=== PATIENT | male | born 1980 | race Caucasian/White ===

== ENCOUNTER 2020-11-02 11:20 | Emergency (ER) | payer OTHER ==
[~2020-11-02] VITALS: Ht 172.7 cm; Wt 75.9 kg
[2020-11-02 14:24] VITALS: BP 129/77
== END 2020-11-02 14:48 | disposition home or self-care (01) ==
LOC: EMS 11:23
DX: S06.0X9A Concussion with loss of consciousness of unspecified duration, initial encounter (principal); Y08.89XA Assault by other specified means, initial encounter; Y93.89 Activity, other specified; Y92.89 Other specified places as the place of occurrence of the external cause; Y99.0 Civilian activity done for income or pay
CPT/HCPCS: 70450; 99284; 99285

== ENCOUNTER 2023-06-10 08:19 | Emergency (ER) | payer OTHER ==
[~2023-06-10] VITALS: Ht 172.7 cm; Wt 86.4 kg
[2023-06-10 08:29] VITALS: TEMP 98.8
[2023-06-10 09:14] VITALS: BP 150/90; PULSE 78; RESP 18
== END 2023-06-10 11:06 | disposition home or self-care (01) ==
LOC: EMS 08:24
DX: S00.93XA Contusion of unspecified part of head, initial encounter (principal); S10.93XA Contusion of unspecified part of neck, initial encounter; Y08.89XA Assault by other specified means, initial encounter; Y93.89 Activity, other specified; Y92.89 Other specified places as the place of occurrence of the external cause; Y99.8 Other external cause status
CPT/HCPCS: 99282; Z7502

== ENCOUNTER 2024-01-01 07:56 | Day surgery (SDC) | payer OTHER ==
[~2024-01-01] VITALS: Ht 172.7 cm; Wt 75.0 kg
[~2024-01-01 07:56] MED LIST: ASPI-1444 PO; CHOL400T56 PO; FLUT16SP NASAL; OMEP40CA21 PO; ROSU20TA73 PO; SODIUM CHLORIDE 0.9% 1,000 ML ONE; VITA-328 PO; ZINC50CA3 PO
[2024-01-01] MEDS: SODIUM CHLORIDE 0.9% 1,000 ML IV ONE (08:45)
[2024-01-01] MEDS ORDERED: PROPOFOL 1% 20 ML VIAL IVP ONE (12:00)
[2024-01-01] MEDS ORDERED: LIDOCAINE/PF 2% 5 ML VIAL IM ONE (12:00)
== END 2024-01-01 12:10 | disposition home or self-care (01) ==
LOC: SURGERY 07:56
PROVIDERS: ATTEND Internal Medicine Gastroenterology
DX: K21.9 Gastro-esophageal reflux disease without esophagitis (principal); K31.89 Other diseases of stomach and duodenum; K44.9 Diaphragmatic hernia without obstruction or gangrene; K29.50 Unspecified chronic gastritis without bleeding; I10 Essential (primary) hypertension; R07.89 Other chest pain; E78.00 Pure hypercholesterolemia, unspecified; Z86.16 Personal history of COVID-19; Z79.899 Other long term (current) drug therapy; Z82.49 Family history of ischemic heart disease and other diseases of the circulatory system
CPT/HCPCS: 88305; 88312; 88313; J2704; J3490; J7030

== ENCOUNTER → 2024-01-12 | Outpatient (CLI) | payer OTHER ==
[~2024-01-12] MED LIST changes: +REGADENOSON 0.4 MG/5 ML PF SYRINGE IVP ONE; +SESTAMIBI TC99M/UD ISOTOPE 1 EA INJ ONE; -SODIUM CHLORIDE 0.9% 1,000 ML ONE
[2024-01-12] MEDS: REGADENOSON 0.4 MG/5 ML PF SYRINGE IVP ONE (10:14)
== END | disposition home or self-care (01) ==
LOC: CARDMN 08:18
PROVIDERS: ATTEND Internal Medicine Cardiovascular Disease
DX: R07.9 Chest pain, unspecified (principal)
CPT/HCPCS: 78452; A9500; J2785

== ENCOUNTER 2024-09-08 08:55 | Emergency (ER) | payer OTHER ==
[~2024-09-08] VITALS: Ht 170.2 cm; Wt 79.5 kg
[~2024-09-08 08:55] MED LIST changes: -REGADENOSON 0.4 MG/5 ML PF SYRINGE IVP ONE; -ROSU20TA73 PO; +ROSU20TA98 PO; -SESTAMIBI TC99M/UD ISOTOPE 1 EA INJ ONE
[2024-09-08 09:01] VITALS: BP 141/93; PULSE 90; RESP 18; TEMP 98.2; O2SAT 99
[2024-09-08] MEDS: ACETAMINOPHEN 500 MG TABLET PO ONE (09:53)
[2024-09-08] MEDS: GuaiFENesin/D-METHORPHAN [SUGAR-FREE] 200-20MG/10 ML SYRUP UDCUP PO ONE (09:53)
[2024-09-08] MEDS: IBUPROFEN 600 MG TABLET PO ONE (09:54)
[2024-09-08 10:08] LABS: COVID AG,FIA SOURCE NASAL SWAB
[2024-09-08 10:25] LABS: SARS-COV2 (COVID) ANTIGEN,FIA Negative (Negative)
[2024-09-08 10:26] LABS: INFLUENZA TYPE A NEGATIVE FOR TYPE A (NEGATIVE); INFLUENZA TYPE B NEGATIVE FOR TYPE B (NEGATIVE)
[2024-09-08] MEDS ORDERED: IBUP-1554 PO (10:53)
[2024-09-08] MEDS ORDERED: HYDR-4062 PO (10:53)
[2024-09-08] MEDS ORDERED: BENZ-227 PO (10:53)
[2024-09-08] MEDS ORDERED: AZIT250T9 PO (11:05)
== END 2024-09-08 11:06 | disposition home or self-care (01) ==
LOC: EMS 08:58
DX: J20.9 Acute bronchitis, unspecified (principal); Z79.82 Long term (current) use of aspirin; Z79.899 Other long term (current) drug therapy; Z20.822 Contact with and (suspected) exposure to COVID-19
CPT/HCPCS: 87804; 99284; Z7502; Z7610

== ENCOUNTER 2024-10-30 11:37 | Emergency (ER) | payer OTHER ==
[~2024-10-30] VITALS: Ht 172.7 cm; Wt 86.4 kg
[~2024-10-30 11:37] MED LIST changes: +BENZ-227 PO; +HYDR-4062 PO; +IBUP-1554 PO
[2024-10-30 11:48] VITALS: TEMP 97.9
[2024-10-30 12:20] LABS: BASOPHILS % (AUTO) 0.1 % (0.0-2.0); EOSINOPHILS % (AUTO) 0.4 % (1.0-6.0); HEMOGLOBIN 16.1 g/dL (13.5-17.5); LYMPHOCYTES # (AUTO) 0.5 K/uL (1.0-4.8); LYMPHOCYTES % (AUTO) 4.3 % (22.0-44.0); MEAN CORPUSCULAR HEMOGLOBIN 25.6 pg (26.0-34.0); MEAN CORPUSCULAR HGB CONC 32.9 G/dL (31.0-37.0); MEAN CORPUSCULAR VOLUME 78 fL (80-100); MONOCYTES # (AUTO) 0.4 K/uL (0.1-1.0); MONOCYTES % (AUTO) 3.8 % (2.0-9.0); NEUTROPHILS # (AUTO) 10.4 K/uL (1.8-7.7); PLATELET COUNT (AUTO) 276 K/uL (150-450); RED CELL DISTRIBUTION WIDTH 14.1 % (11.5-14.5); WHITE BLOOD COUNT (AUTO) 11.4 K/uL (4.5-11.0)
[2024-10-30] MEDS: ONDANSETRON HCL 4 MG/2 ML VIAL IVP ONE (12:26)
[2024-10-30] MEDS: SODIUM CHLORIDE 0.9% 2,000 ML IV ONE (12:26)
[2024-10-30] MEDS: DIPHENOXYLATE/ATROP 2.5-0.025 MG TABLET PO ONE (12:27)
[2024-10-30] MEDS: ACETAMINOPHEN 500 MG TABLET PO ONE (12:27)
[2024-10-30 12:28] LABS: NEUTROPHILS % (AUTO) 91.4 % (40.0-70.0)
[2024-10-30 12:30] LABS: ANION GAP 10 mmol/L (8-16); CALCIUM, TOTAL 8.7 mg/dL (8.8-10.5); CARBON DIOXIDE 25 mmol/L (22-29); CHLORIDE 102 mmol/L (98-107); CREATININE 0.72 mg/dL (0.60-1.30); GLOMERULAR FILTR. RATE CALC > 60 mL/min (>60); GLUCOSE,RANDOM 133 mg/dL (70-110); LIPASE 54 U/L (16-77); POTASSIUM 4.4 mmol/L (3.5-5.1); SODIUM SERUM 137 mmol/L (136-145); UREA NITROGEN, BLOOD 18 mg/dL (7-18)
[2024-10-30 12:34] LABS: ALBUMIN 4.2 g/dL (3.4-5.0); BILIRUBIN,DIRECT 0.2 mg/dL (0.00-0.20); BILIRUBIN,TOTAL 0.8 mg/dL (0.1-1.0); TOTAL PROTEIN, SERUM 8.1 g/dL (6.4-8.2)
[2024-10-30] MEDS ORDERED: DIPH-1130 PO (12:58)
[2024-10-30] MEDS ORDERED: ONDA-104 PO (12:58)
[2024-10-30] MEDS ORDERED: ACET-66 PO (12:58)
[2024-10-30 13:13] LABS: RBC MORPHOLOGY COMMENT ABNORMAL RBC MORPH
[2024-10-30 13:40] VITALS: BP 120/77; PULSE 98; RESP 16; O2SAT 100
[2024-10-31] MEDS ORDERED: FAMO40TA7 PO (16:45)
== END 2024-10-30 13:41 | disposition home or self-care (01) ==
LOC: EMS 11:41
DX: K52.9 Noninfective gastroenteritis and colitis, unspecified (principal); R42 Dizziness and giddiness; R53.1 Weakness; Z79.82 Long term (current) use of aspirin; Z79.899 Other long term (current) drug therapy
CPT/HCPCS: 99283; 96374; 96361; 80048; 80076; 83690; 85025; 36415; J2405; J7030

== ENCOUNTER 2024-10-31 16:38 | Inpatient (IN) | payer OTHER ==
[~2024-10-31] VITALS: Ht 172.7 cm; Wt 86.5 kg
[~2024-10-31 16:38] MED LIST changes: +ACET-66 PO; +DIPH-1130 PO; +ONDA-104 PO
[2024-10-31] MEDS ORDERED: FAMO40TA7 PO (16:45)
[2024-10-31 17:31] LABS: COVID AG,FIA SOURCE NASAL SWAB
[2024-10-31 17:52] LABS: INFLUENZA TYPE A NEGATIVE FOR TYPE A (NEGATIVE); INFLUENZA TYPE B NEGATIVE FOR TYPE B (NEGATIVE); SARS-COV2 (COVID) ANTIGEN,FIA Negative (Negative)
[2024-10-31] MEDS: ONDANSETRON HCL 4 MG/2 ML VIAL IVP ONE (18:29)
[2024-10-31] MEDS: SODIUM CHLORIDE 0.9% 2,000 ML IV ONE (18:29)
[2024-10-31 18:39] LABS: ANION GAP 7 mmol/L (8-16); CALCIUM, TOTAL 7.7 mg/dL (8.8-10.5); CARBON DIOXIDE 26 mmol/L (22-29); CHLORIDE 102 mmol/L (98-107); CREATININE 0.81 mg/dL (0.60-1.30); GLOMERULAR FILTR. RATE CALC > 60 mL/min (>60); GLUCOSE,RANDOM 106 mg/dL (70-110); POTASSIUM 3.9 mmol/L (3.5-5.1); SODIUM SERUM 135 mmol/L (136-145); UREA NITROGEN, BLOOD 18 mg/dL (7-18)
[2024-10-31 18:40] LABS: BASOPHILS % (AUTO) 0.1 % (0.0-2.0); EOSINOPHILS % (AUTO) 0.3 % (1.0-6.0); HEMATOCRIT 46.6 % (41-53); HEMOGLOBIN 15.3 g/dL (13.5-17.5); LYMPHOCYTES # (AUTO) 0.5 K/uL (1.0-4.8); MEAN CORPUSCULAR HEMOGLOBIN 25.6 pg (26.0-34.0); MEAN CORPUSCULAR HGB CONC 32.8 G/dL (31.0-37.0); MEAN CORPUSCULAR VOLUME 78 fL (80-100); MONOCYTES # (AUTO) 0.2 K/uL (0.1-1.0); MONOCYTES % (AUTO) 3.5 % (2.0-9.0); NEUTROPHILS # (AUTO) 6.2 K/uL (1.8-7.7); PLATELET COUNT (AUTO) 218 K/uL (150-450); RED BLOOD CELL COUNT(AUTO) 5.97 MIL/uL (4.50-5.90); RED CELL DISTRIBUTION WIDTH 14.3 % (11.5-14.5)
[2024-10-31 18:43] LABS: NEUTROPHILS % (AUTO) 89.1 % (40.0-70.0)
[2024-10-31 18:48] LABS: LACTIC ACID 1.1 mmol/L (0.4-2.0)
[2024-10-31] MEDS: DEXTROSE 5%-LACTATED RINGERS 1,000 ML IV SCH (19:54)
[2024-10-31 21:34] VITALS: BP 125/78; PULSE 112; RESP 18; TEMP 99.2; O2SAT 98
[2024-10-31] MEDS: ACETAMINOPHEN 325 MG TABLET PO PRN (21:50)
[2024-10-31 23:14] LABS: OCCULT BLOOD STOOL SINGLE ONLY POSITIVE (NEGATIVE)
[2024-10-31 23:37] LABS: C.DIFF GDH ANTIGEN, Stool Negative (Negative); C.DIFF TOXINS A&B, Stool Negative (Negative)
[2024-11-01] MEDS: HEPARIN SODIUM,PORCINE 5,000 UNITS/ML VIAL SQ SCH
[2024-11-01] MEDS: *CLINICAL-LEVOFLOXACIN ORAL DOSING CLINICAL ONE (01:42)
[2024-11-01] MEDS: MetroNIDAZOLE 500 MG TABLET PO SCH (02:25)
[2024-11-01] MEDS: RINGERS SOLUTION,LACTATED 500 ML IV ONE (02:25)
[2024-11-01] MEDS: AZITHROMYCIN 500 MG/NS 250 ML IV ONE (02:26)
[2024-11-01] MEDS ORDERED: LEVOFLOXACIN 500 MG/D5% WATER 100 ML IV SCH (04:00)
[2024-11-01 08:12] LABS: BASOPHILS % (AUTO) 0.2 % (0.0-2.0); EOSINOPHILS % (AUTO) 0.6 % (1.0-6.0); HEMATOCRIT 38.7 % (41-53); HEMOGLOBIN 12.9 g/dL (13.5-17.5); LYMPHOCYTES # (AUTO) 0.8 K/uL (1.0-4.8); LYMPHOCYTES % (AUTO) 13.2 % (22.0-44.0); MEAN CORPUSCULAR HEMOGLOBIN 25.8 pg (26.0-34.0); MEAN CORPUSCULAR HGB CONC 33.3 G/dL (31.0-37.0); MEAN CORPUSCULAR VOLUME 77 fL (80-100); MONOCYTES # (AUTO) 0.4 K/uL (0.1-1.0); MONOCYTES % (AUTO) 6.1 % (2.0-9.0); NEUTROPHILS # (AUTO) 5.1 K/uL (1.8-7.7); NEUTROPHILS % (AUTO) 79.9 % (40.0-70.0); PLATELET COUNT (AUTO) 193 K/uL (150-450); RED CELL DISTRIBUTION WIDTH 13.9 % (11.5-14.5); WHITE BLOOD COUNT (AUTO) 6.4 K/uL (4.5-11.0)
[2024-11-01] MEDS: LEVOFLOXACIN 500 MG TABLET PO SCH (08:13)
[2024-11-01] MEDS: ONDANSETRON HCL 4 MG/2 ML VIAL IVP PRN (08:18)
[2024-11-01 08:33] LABS: ANION GAP 8 mmol/L (8-16); CALCIUM, TOTAL 7.5 mg/dL (8.8-10.5); CARBON DIOXIDE 24 mmol/L (22-29); CHLORIDE 106 mmol/L (98-107); CREATININE 0.61 mg/dL (0.60-1.30); GLOMERULAR FILTR. RATE CALC > 60 mL/min (>60); GLUCOSE,RANDOM 114 mg/dL (70-110); POTASSIUM 3.2 mmol/L (3.5-5.1); SODIUM SERUM 138 mmol/L (136-145); UREA NITROGEN, BLOOD 10 mg/dL (7-18)
[2024-11-01 08:52] VITALS: BP 111/71; PULSE 89; RESP 18; TEMP 98.2; O2SAT 99
[2024-11-01 09:01] LABS: RBC MORPHOLOGY COMMENT ABNORMAL RBC MORPH
[2024-11-01] MEDS ORDERED: POTASSIUM CHL 10 MEQ/WATER 50 ML IV PRN (11:15)
[2024-11-01] MEDS: FAMOTIDINE 20 MG TABLET PO SCH (14:24)
[2024-11-01] MEDS: POTASSIUM CHLORIDE 20 MEQ ER TABLET PO PRN (14:25)
[2024-11-01 15:59] VITALS: BP 114/83; PULSE 82; RESP 18; TEMP 100; O2SAT 96
[2024-11-01 19:20] VITALS: BP 118/80; PULSE 83; RESP 20; TEMP 98.6; O2SAT 100
[2024-11-01] MEDS: LACTOBAC ACID/BULG/BIFID/THERM TABLET PO SCH (20:36)
[2024-11-02 03:55] VITALS: BP 122/77; PULSE 77; RESP 18; TEMP 98.2; O2SAT 97
[2024-11-02 06:08] LABS: BASOPHILS % (AUTO) 0.3 % (0.0-2.0); EOSINOPHILS % (AUTO) 1.3 % (1.0-6.0); HEMATOCRIT 41.4 % (41-53); HEMOGLOBIN 13.6 g/dL (13.5-17.5); LYMPHOCYTES # (AUTO) 1.2 K/uL (1.0-4.8); LYMPHOCYTES % (AUTO) 32.4 % (22.0-44.0); MEAN CORPUSCULAR HEMOGLOBIN 25.5 pg (26.0-34.0); MEAN CORPUSCULAR HGB CONC 32.8 G/dL (31.0-37.0); MEAN CORPUSCULAR VOLUME 78 fL (80-100); MONOCYTES # (AUTO) 0.5 K/uL (0.1-1.0); MONOCYTES % (AUTO) 13.9 % (2.0-9.0); NEUTROPHILS # (AUTO) 1.9 K/uL (1.8-7.7); NEUTROPHILS % (AUTO) 52.1 % (40.0-70.0); PLATELET COUNT (AUTO) 226 K/uL (150-450); RED BLOOD CELL COUNT(AUTO) 5.34 MIL/uL (4.50-5.90); RED CELL DISTRIBUTION WIDTH 13.9 % (11.5-14.5); WHITE BLOOD COUNT (AUTO) 3.7 K/uL (4.5-11.0)
[2024-11-02 07:53] VITALS: BP 114/74; PULSE 74; RESP 18; TEMP 98.8; O2SAT 95
[2024-11-02] MEDS ORDERED: LEVO-72 PO (10:11)
[2024-11-02] MEDS ORDERED: METR500 PO (10:11)
== END 2024-11-02 15:05 | disposition home or self-care (01) | DRG 392 ==
LOC: EMS 16:38 → EDH 18:59 → 6N 20:50 → 4E 11-01 13:39
PROVIDERS: ADMIT Internal Medicine; ATTEND Internal Medicine
DX: A09 Infectious gastroenteritis and colitis, unspecified (principal); E86.0 Dehydration; E78.5 Hyperlipidemia, unspecified; J30.9 Allergic rhinitis, unspecified; Z20.822 Contact with and (suspected) exposure to COVID-19; E87.6 Hypokalemia; D64.9 Anemia, unspecified; K21.9 Gastro-esophageal reflux disease without esophagitis; Z79.899 Other long term (current) drug therapy
CPT/HCPCS: 80048; 82271; 83605; 83735; 84132; 85025; 87324; 87449; 87804; 89055; 96361; 96374; 99285; G0378; J0456; J1644; J1956; J2405; J7120; 36415-L1; 36415-TC

== ENCOUNTER 2025-01-28 06:06 | Day surgery (SDC) | payer OTHER ==
[~2025-01-28] VITALS: Ht 172.7 cm; Wt 85.9 kg
[~2025-01-28 06:06] MED LIST changes: -ACET-66 PO; -ASPI-1444 PO; +ASPI-1450 PO; -BENZ-227 PO; -CHOL400T56 PO; -DIPH-1130 PO; +FAMO40TA7 PO; -FLUT16SP NASAL; -HYDR-4062 PO; -IBUP-1554 PO; -OMEP40CA21 PO; -ONDA-104 PO; +ROSU10TA72 PO; -ROSU20TA98 PO; +SODIUM CHLORIDE 0.9% 1,000 ML ONE; -VITA-328 PO; -ZINC50CA3 PO
[2025-01-28] MEDS: SODIUM CHLORIDE 0.9% 1,000 ML IV ONE (06:58)
[2025-01-28] MEDS ORDERED: PROPOFOL 1% 20 ML VIAL IVP ONE (12:00)
[2025-01-28] MEDS ORDERED: LIDOCAINE/PF 2% 5 ML VIAL ONE (12:00)
== END 2025-01-28 10:05 | disposition home or self-care (01) ==
LOC: SURGERY 06:06
PROVIDERS: ATTEND Internal Medicine
DX: K92.1 Melena (principal); K63.5 Polyp of colon; K64.8 Other hemorrhoids; E78.00 Pure hypercholesterolemia, unspecified; K21.9 Gastro-esophageal reflux disease without esophagitis; Z72.89 Other problems related to lifestyle; Z20.822 Contact with and (suspected) exposure to COVID-19
CPT/HCPCS: 45380; 88305; C1769; J2704; J3490; J7030

== ENCOUNTER → 2025-05-05 | Outpatient (CLI) | payer OTHER ==
[~2025-05-05] MED LIST changes: -ROSU10TA72 PO; +ROSU10TA98 PO; -SODIUM CHLORIDE 0.9% 1,000 ML ONE
== END | disposition home or self-care (01) ==
LOC: RADMN 08:15
PROVIDERS: ATTEND Internal Medicine
DX: Z86.11 Personal history of tuberculosis (principal)
CPT/HCPCS: 71045